=== PATIENT | female | born 1995 | race Caucasian/White ===

== ENCOUNTER 2018-04-04 00:32 | Outpatient (CLI) | payer MEDICAID, SELFPAY ==
--- NOTE | 2018-04-04 11:39 | DI.US_ITS ---
SYMPTOMS/DIAGNOSIS: GROWTH, Z34.90 OB ULTRASOUND: A cephalic del real is demonstrated with measurements consistent with a gestational age of 35 weeks. The amniotic fluid index is normal. There is anterior grade II fundal placenta. The estimated weight is 2483 grams which is in the 27th percentile. Please see the obstetrical ultrasound worksheet for the complete results of the examination. Many abnormalities cannot be diagnosed. A normal exam does not exclude a congenital anomaly. Radiology No. [id number] LMP: Exam Date: 04/04/18 [facility] 35 wks 3 days EDC ([facility]) Confirmed: HISTORY: growth, ADRI, weight ---- PREDICTED GESTATIONAL AGE NUMBER 35+3 weeks with a range of 34+3 weeks to 36+3 weeks. 1 Determined by 1STUS X LMP___HISTORY Info. pertaining to fetus # PLACENTA PRESENTATION Grade II Cephalic X Anterior X Posterior___ Breech____ Right Left Transverse(head right___ Fundal X Low-lying___Previa___ Transverse(head left___ Varying BIOMETRY AMNIOTIC FLUID BPD: 89 mm 36 weeks Normal HC: 316 mm 35+3 weeks AC: 304 mm 34+2 weeks FL: 67 mm 34+3 weeks AMNIOTIC FLUID INDEX >26 WK CRL: mm weeks Cisterna Magna: mm CI: 87 RUQ: 6.9 LUQ: 1.6 Cerebellum: cm EFW: 2483 grams Percentile 27% RLQ: 1.7 LLQ: 2.2 5 lbs, 8 oz Total: 12.4 cms Composite AGE= 35 wks EDC by US 05/09/18 BIOPHYSICAL PROFILE ANATOMY IDENTIFIED SCORE 0/2 Heart: 4-Chamber___Rate: 144 BPM LVOT: RVOT: Amniotic Fluid(>2cms)____ Stomach: Kidneys: Respirations (>30 secs) Bladder: Post. Fossa: Body Flex/Extension 3 vessel cord: Ventricles: cord insertion: Lips:____ Extremity Flex/Extension spinal morphology: Nose: Total Score= Palate: NS=not seen
== END 2018-04-04 00:52 ==
PROVIDERS: PCP Nurse Practitioner Family; Visit Provider Advanced Practice Midwife
DX: Z34.93 Encounter for supervision of normal pregnancy, unspecified, third trimester (principal); Z36.89 Encounter for other specified antenatal screening
CPT/HCPCS: 76816

== ENCOUNTER 2018-04-04 16:25 | Outpatient (REF) | payer MEDICAID, SELFPAY | END 2018-04-04 16:45 | LOC: LBN 16:25 | PROVIDERS: PCP Nurse Practitioner Family; Visit Provider Midwife | DX: Z34.91 Encounter for supervision of normal pregnancy, unspecified, first trimester (principal) | CPT/HCPCS: 87081 ==

== ENCOUNTER 2018-04-26 00:26 | Outpatient (CLI) | payer MEDICAID, SELFPAY ==
--- NOTE | 2018-04-26 08:04 | DI.US_ITS ---
SYMPTOMS/DIAGNOSIS: SIZE LESS THAN DATES, 026.843 OB ULTRASOUND: The placenta is anterior. A previously noted venous malhotra appears much smaller in size. The placenta is grade II. The biometric measurements correspond to 37 weeks 5 days. The estimated weight is 3298 grams, corresponding to the 45th percentile. The amniotic fluid index appears normal at 14.0 cm. Many abnormalities cannot be diagnosed. A normal exam does not exclude a congenital anomaly. Radiology No. [id number] LMP: Exam Date: [facility] wks days on EDC ([facility]) Confirmed: HISTORY: SIZE < DATES ---- PREDICTED GESTATIONAL AGE NUMBER 38+4 weeks with a range of 37+4 weeks to 39+4 weeks. 1 Determined by___1STUS___LMP___HISTORY Info. pertaining to fetus # PLACENTA PRESENTATION Grade II Cephalic X Anterior X Posterior___ Breech____ Right Left Transverse(head right___ Fundal___Low-lying___Previa___ Transverse(head left___ Varying BIOMETRY AMNIOTIC FLUID BPD: 93mm 37+5 weeks Normal HC: 331 mm 37+4 weeks AC: 339 mm 37+5 weeks FL: 74 mm 37+6 weeks AMNIOTIC FLUID INDEX >26 WK CRL: mm weeks Cisterna Magna: mm CI: 84 RUQ: 3.7 LUQ: 7.4 Cerebellum: cm EFW: 3298 grams Percentile 45% RLQ: 1.3 LLQ: 1.6 (7# 4OZ) Total: 14.0 cms Composite AGE= 37+5 wks EDC by US 05/12/18 BIOPHYSICAL PROFILE ANATOMY IDENTIFIED SCORE 0/2 Heart: 4-Chamber___Rate: 136 BPM LVOT: RVOT: Amniotic Fluid(>2cms)____ Stomach: Kidneys: Respirations (>30 secs) Bladder: Post. Fossa: Body Flex/Extension 3 vessel cord: Ventricles: cord insertion: Lips:____ Extremity Flex/Extension spinal morphology: Nose: Total Score= Palate: NS=not seen
== END 2018-04-26 00:46 ==
PROVIDERS: PCP Nurse Practitioner Family; Visit Provider Advanced Practice Midwife
DX: O26.843 Uterine size-date discrepancy, third trimester (principal)
CPT/HCPCS: 76816

== ENCOUNTER 2018-05-10 23:33 | Inpatient (IN) | payer MEDICAID, SELFPAY ==
[2018-05-11 00:40] LABS: HCT 41.8 % (36.0-46.0); HGB 14.1 g/dL (12.0-15.5); Mean Corp. HGB Concentration 33.7 g/dL (32.0-36.0); Mean Corpuscular Hemoglobin 30.5 pg (27.0-33.0); Mean Corpuscular Volume 90.5 fL (80-95); Mean Platelet Volume 11.7 fL (8.0-11.0); Platelet Count 165 x1000/uL (130-400); RBC 4.62 m/cumm (4.00-5.20); RBC Distribution Width 13.5 % (11.7-14.6); White Blood Cell Count 14.61 k/cumm (4.4-10.8)
--- NOTE | 2018-05-11 01:32 | PLAC_PTH ---
PATIENT: Ruby Mercado LOC: OBS U#:[id number] AGE/SX: 23/ ROOM: OBS.300 RE05/10/[address]: Melanie Prather RN : 1995 BED: A DIS: 05/12/2018 SPEC #: [id number] RECD: 05/13/18 12:32 STATUS: SOUKavon REQ #: [id number] SERGIO: 05/11/18 01:[address]: Melanie Prather DEPT: Surgical Specimen RECD BY: Laura Morejon ENTERED: 05/13/18 12:33 SP TYPE: PLAC OTHR DR: Eduarda Desai Tissues: 1 - PLACENTA (3RD TRIMESTER) Procedures: GROSS AND MICRO LEVEL 5 Comments: [id number]
[2018-05-11] MEDS: Normal Saline Flush 10 ML SYR IVP (01:45)
[2018-05-11] MEDS: Hamamelis Leaf/Glycerin 100 EACH BOX PR (03:00)
[2018-05-11 13:20] LABS: HCT 33.3 % (36.0-46.0); HGB 11.1 g/dL (12.0-15.5); Mean Corp. HGB Concentration 33.3 g/dL (32.0-36.0); Mean Corpuscular Hemoglobin 31.2 pg (27.0-33.0); Mean Corpuscular Volume 93.5 fL (80-95); Mean Platelet Volume 12.7 fL (8.0-11.0); Platelet Count 162 x1000/uL (130-400); RBC 3.56 m/cumm (4.00-5.20); RBC Distribution Width 13.4 % (11.7-14.6); White Blood Cell Count 22.01 k/cumm (4.4-10.8)
[2018-05-12 08:02] LABS: HCT 30.1 % (36.0-46.0); Mean Corp. HGB Concentration 33.2 g/dL (32.0-36.0); Mean Corpuscular Hemoglobin 31.2 pg (27.0-33.0); Mean Corpuscular Volume 93.8 fL (80-95); Mean Platelet Volume 11.6 fL (8.0-11.0); Platelet Count 141 x1000/uL (130-400); RBC 3.21 m/cumm (4.00-5.20); RBC Distribution Width 13.2 % (11.7-14.6)
[2018-05-12] MEDS: Ferrous Sulfate 325 MG TAB PO (11:41)
[2018-05-12] MEDS: Ibuprofen 600 MG TAB PO (12:52)
[2018-05-12] MEDS: Hamamelis Leaf/Glycerin 100 EACH BOX PR (12:53)
[2018-05-12] MEDS: Acetaminophen 325 MG TAB 650 MG PO (12:53)
== END 2018-05-12 13:00 | disposition home or self-care (01) | DRG 807 ==
PROVIDERS: Admitting Provider Advanced Practice Midwife; PCP Nurse Practitioner Family; Visit Provider Advanced Practice Midwife
DX: O48.0 Post-term pregnancy (principal); Z3A.40 40 weeks gestation of pregnancy; Z37.0 Single live birth
CPT/HCPCS: 36415; 85027; 85461; 86850; 86900; 86901; 90384; 88307; G0378; J2590; J2790; J3490

== ENCOUNTER 2018-06-17 15:43 | Outpatient (REF) | payer MEDICAID, SELFPAY ==
--- NOTE | 2018-06-17 14:50 | PAPFT_PTH ---
PATIENT: Ruby Mercado LOC: [facility] U#:[id number] AGE/SX: 23/ ROOM: RE06/17/[address]: Melanie Prather RN : 1995 BED: DIS: 06/17/2018 SPEC #: [id number] RECD: 06/17/18 17:54 STATUS: TARIK REQ #: [id number] SERGIO: 06/17/18 14:[address]: Melanie Prather DEPT: [facility] Cytology RECD BY: Laura Morejon ENTERED: 06/17/18 17:55 SP TYPE: PAPFT OTHR DR: Eduarda Desai Tissues: 1 - CX/ENDOCX FOR PAP SMEARS Procedures: PAP THIN PREP/UVM Screening Comments: [id number]
[2018-06-19 13:14] LABS: Chlamydia Result Negative; GC Result Negative; Specimen Description CERVIX
== END 2018-06-17 16:03 ==
LOC: LBN 15:43
PROVIDERS: PCP Nurse Practitioner Family; Visit Provider Advanced Practice Midwife
DX: Z11.3 Encounter for screening for infections with a predominantly sexual mode of transmission (principal); Z12.4 Encounter for screening for malignant neoplasm of cervix; Z01.419 Encounter for gynecological examination (general) (routine) without abnormal findings
CPT/HCPCS: 87491; 87591; 88142

== ENCOUNTER 2019-04-23 01:29 | Outpatient (CLI) | payer MEDICAID, SELFPAY ==
--- NOTE | 2019-04-23 14:22 | DI.US_ITS ---
EXAM: US PELVIS TRANSVAGINAL CLINICAL HISTORY: increased pelvic pain, Paraguard location/placement. TECHNIQUE: Transabdominal and transvaginal exams were performed. COMPARISON: No exams were available for comparison FINDINGS: The uterus is retroflexed. The uterus measures 8.2 by 3.8 x 5.8. An IUD is noted within the endom etrial canal. The endometrium measures 10 millimeters in thickness. A 2.4 centimeter corpus luteum c yst is seen on the left ovary. The right ovary is unremarkable. There is no evidence of torsion. Th ere is a physiologic amount of free fluid. There is no evidence of hydronephrosis. IMPRESSION: The IUD is appropriately positioned within the endometrial cavity.
[2019-04-23 15:27] LABS: HCG Quant, Pregnancy < 1 mIU/mL (1-3)
== END 2019-04-23 01:49 ==
PROVIDERS: Advanced Practice Midwife; PCP Nurse Practitioner Family; Visit Provider Advanced Practice Midwife
DX: R10.2 Pelvic and perineal pain (principal); T83.32XA Displacement of intrauterine contraceptive device, initial encounter; N85.4 Malposition of uterus; N83.12 Corpus luteum cyst of left ovary; Z30.431 Encounter for routine checking of intrauterine contraceptive device
CPT/HCPCS: 87491; 87591; 76830; 76856; 84702; 87086

== ENCOUNTER 2019-04-23 17:00 | Outpatient (REF) | payer MEDICAID, SELFPAY ==
[2019-04-25 15:11] LABS: Chlamydia Result Negative (Negative); GC Result Negative (Negative); Specimen Description CERVIX
== END 2019-04-23 17:20 ==
LOC: LBN 17:00
PROVIDERS: PCP Nurse Practitioner Family; Visit Provider Advanced Practice Midwife
DX: Z11.3 Encounter for screening for infections with a predominantly sexual mode of transmission (principal)
CPT/HCPCS: 87491; 87591; 87086

== ENCOUNTER 2020-01-12 01:41 | Outpatient (CLI) | payer MEDICAID, SELFPAY ==
--- NOTE | 2020-01-12 | DI.MRI_ITS ---
EXAM: MR BRAIN WO CLINICAL HISTORY: MIGRAINE FRANCIS,G43.909,INCREASED SEVERITY/FREQUENCY 4+ TIMES/WEEK,DEBILITATING TECHNIQUE: Multiplanar multisequence MRI of the brain was performed. COMPARISON: No exams were available for comparison FINDINGS: VENTRICLES AND EXTRA AXIAL SPACES: Normal in size and morphology for the patient's age. MIDLINE SHIFT: None. CEREBRAL PARENCHYMA: No focus of restricted diffusion to suggest acute infarct. No space-occupying le salvador identified. HEMORRHAGE: None. BRAINSTEM/CEREBELLUM: Normal. CALVARIUM: Normal. VISUALIZED PARANASAL SINUSES/MASTOIDS:Clear. KALISPEL OF ARENAS: Normal flow void. PITUITARY GLAND: Unremarkable. OTHER FINDINGS: None. IMPRESSION: Unremarkable MRI of the brain. DATA REPOSITORY:
== END 2020-01-12 02:01 ==
PROVIDERS: PCP Nurse Practitioner Family; Visit Provider Nurse Practitioner Family
DX: G43.909 Migraine, unspecified, not intractable, without status migrainosus (principal)
CPT/HCPCS: 70551

== ENCOUNTER 2020-07-15 14:41 | Outpatient (REF) | payer MEDICAID, SELFPAY ==
[2020-07-19 14:49] LABS: Chlamydia Result Negative (Negative); GC Result Negative (Negative)
== END 2020-07-15 15:01 ==
LOC: NCHCN 14:41
PROVIDERS: PCP Nurse Practitioner Family; Visit Provider Nurse Practitioner Family
DX: N76.0 Acute vaginitis (principal); B37.3 Candidiasis of vulva and vagina; Z00.00 Encounter for general adult medical examination without abnormal findings
CPT/HCPCS: 87491; 87591; 87480; 87510; 87660

== ENCOUNTER 2020-10-19 02:36 | Outpatient (CLI) | payer MEDICAID, SELFPAY ==
[2020-10-19 11:59] LABS: Source Nasal/Nares
[2020-10-19 15:51] LABS: COVID-19 PCR Negative (Negative)
== END 2020-10-19 02:37 | disposition home or self-care (01) ==
LOC: LBO 02:37
PROVIDERS: PCP Nurse Practitioner Family; Visit Provider Obstetrics & Gynecology Gynecology
DX: Z20.822 Contact with and (suspected) exposure to COVID-19 (principal); Z01.818 Encounter for other preprocedural examination
CPT/HCPCS: 87635

== ENCOUNTER 2020-10-19 04:08 | Outpatient (CLI) | payer MEDICAID, SELFPAY ==
[2020-10-19 14:32] LABS: HCT 43.4 % (36.0-46.0); HGB 14.2 g/dL (11.2-15.7); MCH 29.2 pg (27.0-33.0); MCHC 32.7 % (32.0-36.0); MCV 89.1 fL (80-95); MPV 11.6 fL (8.0-11.0); Platelet Count 243 10^3/uL (130-400); RBC 4.87 10^6/uL (3.93-5.22); RDW 12.4 % (11.7-14.6); RDW-SD 40.8 fL; WBC 8.73 10^3/uL (4.4-10.8)
[2020-10-19 16:12] LABS: Anion Gap 10.7 mmol/L (3-11); CO2 28.3 mmol/L (21.0-32.0); Chloride 103 mmol/L (98-107); Potassium 4.6 mmol/L (3.5-5.1); Sodium 142 mmol/L (136-145)
[2020-10-19 16:18] LABS: HCG Quant, Pregnancy < 1 mIU/mL (1-3)
== END 2020-10-19 04:09 | disposition home or self-care (01) ==
LOC: LBO 04:08
PROVIDERS: PCP Nurse Practitioner Family; Visit Provider Obstetrics & Gynecology Gynecology
DX: Z30.2 Encounter for sterilization (principal); Z30.432 Encounter for removal of intrauterine contraceptive device; Z01.818 Encounter for other preprocedural examination; Z01.812 Encounter for preprocedural laboratory examination
CPT/HCPCS: 36415; 80051; 85027; 86850; 86900; 86901; 84702

== ENCOUNTER 2020-10-21 11:22 | Day surgery (SDC) | payer MEDICAID, SELFPAY ==
[2020-10-21] VITALS (7 sets, daily range): BP systolic 92–116; BP diastolic 50–75; PULSE 56–74; RESP 12–23; TEMP 36.3–36.8; O2SAT 98–100
[2020-10-21] MEDS: Lactated Ringers 1,000 ML 125 ML IV (11:53)
[2020-10-21] MEDS: Bupivacaine 0.25% Pres-Free 30 ML VIAL (13:14)
--- NOTE | 2020-10-21 13:35 | FALL_PTH ---
PATIENT: Ruby Mercado LOC: [facility] U#:[id number] AGE/SX: 25/F ROOM: RE10/21/[address]: Brielle Ventura : 1995 BED: DIS: 10/21/2020 SPEC #: [id number] RECD: 10/21/20 17:28 STATUS: TARIK REQ #: [id number] SERGIO: 10/21/20 13:[address]: Brielle Ventura DEPT: Surgical Specimen RECD BY: Laura Morejon ENTERED: 10/21/20 17:29 SP TYPE: Fall OTHR DR: Amrit Lawrence Tissues: 1 - FALLOPIAN TUBE (STERILIZATION) 2 - FALLOPIAN TUBE (STERILIZATION) Procedures: GROSS AND MICRO LEVEL 2 Comments: [id number]
--- NOTE | 2020-10-21 14:08 | W.PM.DSUDISC ---
Discharge Plan Disposition Patient Disposition: HOME Condition: Fair Discharge Details Reason For Visit: Laparoscopic tubal sterilization Attending Provider: Brielle Ventura Primary Care Provider: Amrit Lawrence Home Meds and New Rx's Prescriptions: Discontinued ParaGard T 380A 380 square mm intrauterine device 1 device IY ONCE Qty: 1 RF: 0 No Action oxycodone-acetaminophen [Endocet] 5-325 mg tablet 1 tab PO Q6H MDD 4 PRN (Reason: pain) Qty: 7 RF: 0 Discharge Instructions Additional Instructions: Follow-up in [address] Ventura for postop check. IUD was removed during today's procedure. 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 Activity:: Activity as Tolerated Diet:: As Tolerated Discharge Orders Discharge Orders: Discharge Order (Routine); Ordered 10/21/20 Ordered By: Brielle Ventura DS: Diagnosis Discharge Diagnosis (1) H/O bilateral salpingectomy: Status: Acute
[2020-10-21] MEDS: oxyCODONE 5 mg/Acetaminophen 325 mg TAB PO (14:57)
--- NOTE | 2020-10-21 15:07 | ROE_ITS ---
Date of service: 10/21/20 Time of Service: 15:07 Operative Note Operative Note DATE OF PROCEDURE: 10/21/20 PRE-OP DIAGNOSIS: Desires sterilization POST-OP DIAGNOSIS: same PROCEDURE: Laparoscopic bilateral salpingectomy and IUD removal SURGEON: Brielle Ventura BARREL DEDENTING MACHINE OPERATOR: Sydnie Holland ANESTHESIA TYPE: General LMA/ETT Refer to Anesthesia Record ESTIMATED BLOOD LOSS: 0 PATHOLOGY: other (Bilateral fallopian tubes to pathology) COMPLICATIONS: None Patient was transported to: PACU Patient's condition: stable Indications: 25yo who has requested laparoscopic bilateral salpingectomy for the purpose of the permanent sterilization. She is used LARC in the past and is clear and her desire to have a permanent sterilization. Findings: Normal adnexa, normal upper abdomen normal appendix Procedure Description: Patient was taken to the operating room where she was placed in the dorsal supine position and endotracheal anesthesia was administered without difficulty. SCDs were in place. A surgical timeout was performed. The patient in the frog-leg position a ring forcep was used to grasp the ParaGard IUD string and the IUD was removed intact. She was prepped and draped in the usual sterile fashion. The umbilical fold was infiltrated with quarter percent Marcaine without epinephrine and 12 mm vertical skin incision was made in the umbilicus. Through this incision a varies needle connected to carbon dioxide gas was inserted into the abdomen and intra-abdominal placement confirmed by drop in the intra-abdominal pressure. Once a pneumoperitoneum was established we attempted to introduce a 12 mm Visiport trocar into the abdomen under direct visualization. We were unable to penetrate the peritoneum with the Visiport. It was removed and the fascia and peritoneum was grasped with Jignesh clamps incised and a Deshpande 12 mm port was introduced into the abdomen and intra-abdominal placement confirmed by use of the laparoscope. Pneumoperitoneum was once again reestablished and the patient was then placed in Trendelenburg and 2 sites on the abdomen approximately 6 cm diagonal to the right of and left of the umbilical incision were transilluminated, the skin infiltrated incised. Under direct visualization two 5 mm ports were placed in the right and left lower quadrants respectively. The abdomen was inspected with the above-noted findings. The left fimbria was located followed out to its fimbriated end and a LigaSure electrocautery device was used to clamp cauterize and transect the fimbria from the left mesosalpinx to the level of the left uterine cornua. LigaSure device was used to clamp cauterize and transect the left distal portion of the fallopian tube from the left uterine cornua. The left fallopian tube was then delivered through the 12 mm umbilical port and passed off of the operative field. A similar technique was carried out on the right fallopian tube without difficulty. After delivery of the right fallopian tube through the umbilical port both pedicles were inspected and noted to be hemostatic. Under direct visualization the two 5 mm ports were removed and the pneumoperitoneum reduced, and the umbilical port removed. The fascia of the umbilical port site was reapproximated with interrupted suture of 0 Vicryl. The skin of all trocar sites was reapproximated with 4-0 Monocryl and covered with dry sterile dressings. The patient was awakened extubated and transported to recovery area in stable condition. All sponge lap needle counts are correct x2
--- NOTE | 2020-10-25 12:24 | PDOC.ANES ---
Date of service: 10/25/20 Time of Service: 12:24 Anesthesia Note Report Anesthesia Note: Phone contact made with Ruby Jess, discussed her current sore throat, and what she describes as redness of her uvula. She describes soreness to swallowing food and drink. She was told to continue with cold drinks as tollerated and OTC pain medications as needed. Ruby was told to call back the anesthesia group by the end of the week if she has worsening pain or difficulty swallowing.
== END 2020-10-21 16:14 | disposition home or self-care (01) ==
PROVIDERS: PCP Nurse Practitioner Family; Visit Provider Obstetrics & Gynecology Gynecology
PROC: (CPT 58661; principal; 2020-10-21 13:00)
PROC: (CPT 58661; 2020-10-21 13:00)
DX: Z30.2 Encounter for sterilization (principal); Z30.432 Encounter for removal of intrauterine contraceptive device
CPT/HCPCS: 58661; 58301; 88302; J1100; J1885; J2001; J2250; J2405; J2704; J3475

== ENCOUNTER 2022-04-19 16:30 | Outpatient (REF) | payer MEDICAID, SELFPAY ==
--- NOTE | 2022-04-19 16:20 | PAPFT_PTH ---
PATIENT: Ruby Mercado LOC: [facility] U#:[id number] AGE/SX: 26/F ROOM: RE04/19/[address]: Brielle Ventura : 1995 BED: DIS: 04/19/2022 SPEC #: [id number] RECD: 04/19/22 18:32 STATUS: TARIK REQ #: [id number] SERGIO: 04/19/22 16:[address]: Brielle Ventura DEPT: [facility] Cytology RECD BY: Laura Morejon Tissues: 1 - CX/ENDOCX FOR PAP SMEARS Procedures: PAP THIN PREP/[facility]VM Screening Comments: [id number]
== END 2022-04-19 16:31 | disposition home or self-care (01) ==
LOC: LBN 16:30
PROVIDERS: Visit Provider Obstetrics & Gynecology Gynecology
DX: Z12.4 Encounter for screening for malignant neoplasm of cervix (principal)
CPT/HCPCS: 88142

== ENCOUNTER 2022-12-04 01:01 | Outpatient (CLI) | payer MEDICAID, SELFPAY ==
--- NOTE | 2022-12-04 | DI.US_ITS ---
Exam(s) US BREAST LT COMPLETE US BREAST RT COMPLETE EXAM: US BREAST bilateral COMPLETE CLINICAL HISTORY: GENERALIZED BREAST PAIN TECHNIQUE: Ultrasound bilateral breast performed using standard protocol. All 4 quadrants of the br east were obtained in addition, the axilla and retroareolar regions of both breasts were also interro gated sonographically. COMPARISON: There are no priors for comparison. FINDINGS: No solid or cystic masses, hypoechoic foci, areas of abnormal shadowing, or areas of skin thickening. The axilla are unremarkable. The retroareolar regions are unremarkable. IMPRESSION: 1. No sonographically suspicious finding. 2. The findings were discussed with the patient on the date of the examination. 3. Mammography was not performed at this time. If there is continued clinical concern, mammogram may be obtained. BI-RADS Category 1 - Negative DATA REPOSITORY:
== END 2022-12-04 01:21 ==
LOC: DI 01:01
PROVIDERS: PCP Naturopath; Visit Provider Obstetrics & Gynecology Gynecology
DX: N64.4 Mastodynia (principal)
CPT/HCPCS: 76642

== ENCOUNTER 2023-01-25 16:07 | Emergency (ER) | payer MEDICAID, SELFPAY ==
[2023-01-25 16:15] VITALS: BP 117/69; PULSE 95; RESP 16; TEMP 37.5; O2SAT 100
--- NOTE | 2023-01-25 17:15 | DI.CT_ITS ---
Exam(s) CT ABDOMEN PELVIS W EXAM: CT ABDOMEN PELVIS W CLINICAL HISTORY: abd pain. TECHNIQUE: Imaging Protocol: Axial computed tomography images with coronal and sagittal reformatted images were created and reviewed CONTRAST MATERIAL: Intravenous: Omnipaque-350 100cc Oral: None COMPARISON: No exams were available for comparison FINDINGS: VISUALIZED LUNG BASES: No nodules nor pleural effusions evident. ABDOMEN: There is no ascites. LIVER: There is a 1.2 x 1.0 cm hypodense lesion in the right hepatic lobe which is not a simple cyst but is difficult to further evaluate this type study. May represent incidental hemangioma. There is mild periportal edema in the liver noted. No dilated intrahepatic ducts. GALLBLADDER/BILIARY: Gallbladder is contracted. Wall appears slightly thickened. CBD is not dilated . PANCREAS: No evidence of pancreatic mass nor dilatation of the pancreatic duct. SPLEEN: Spleen is not enlarged. No obvious intrasplenic lesions. Splenic and portal veins are paten t. ADRENALS: There are no significant adrenal masses. KIDNEYS:No cysts evident. No solid renal masses. No calculi nor hydronephrosis.. ABDOMINAL AORTA: Abdominal aorta is not enlarged. LYMPH NODES:There is no retroperitoneal nor paraaortic adenopathy. ABDOMINAL WALL: No evidence of significant anterior abdominal wall nor inguinal hernia. GI: There is no evidence of bowel obstruction, free air, nor abscess. PELVIS: GI: No evidence of appendicitis.No evidence of sigmoid diverticulitis. LYMPH NODES: There is no intrapelvic nor inguinal adenopathy. REPRODUCTIVE: Uterus is retroverted. No abnormal adnexal masses. Small amount of free fluid. May b e female physiologic. URINARY BLADDER: Collapsed. OSSEOUS: No fractures and no significant osseous lesions. IMPRESSION: 1. Gallbladder is contracted. Although there are no obvious gallstones the gallbladder wall appears slightly thickened. Recommend follow-up ultrasound. 2. There is mild periportal edema in the liver evident. 3. There is a 12 x 10 millimeter hypodense lesion in the right hepatic lobe which is not a simple cys t. Probably represents an incidental hemangioma in this age group. If clinically indicated can be f urther studied with hemangioma protocol MRI. 4. No evidence of appendicitis nor diverticulitis. No evidence of pancreatitis. First read by [facility]. RADIATION DOSE DELIVERED: 512.56mGy.cm Total DLP DATA REPOSITORY: All CT scans at this facility are submitted to the National Radiology Data Registry (NRDR) Dose Index Registry (DIR) with the [employer] (ACR). RADIATION OPTIMIZATION: All CT scans at this facility use at least one of these dose optimization te chniques: automated exposure control; mA and/or kV adjustment per patient size (includes targeted exa ms where dose is matched to clinical indication); or iterative reconstruction.
--- NOTE | 2023-01-25 17:28 | ED.GENADUL_ITS ---
Discharge Plan Disposition Patient Disposition: Home Condition: Stable Discharge Details Clinical Impression: Abdominal pain Primary Care Provider: Sam Rahman ED Provider: Walter Morales Home Meds and New Rx's Prescriptions: New naproxen 500 mg tablet 500 mg PO BID PRN (Reason: pain) Qty: 10 0RF tramadol 50 mg tablet 50 mg PO BID PRN (Reason: pain) Qty: 2 0RF Continued fluconazole 150 mg tablet 150 mg PO ONCE Qty: 1 4RF Discharge Instructions Instructions: Abdominal Pain (ED) Discharge Data Discharge Date/Time-TO BE ENTERED AT DEPARTURE: 01/25/23 20:19 HPI General Date/Time Provider Initiated Documentation: 01/25/23 17:15 . HPI Narrative: 27 year old female presents to the ED with several weeks of on and off RUQ pain, but has been more severe the past 2 days. She says that it has been worse at night, waking her up. She says that it not affected by position or food. No fever/chills. Denies any diarrhea, no bloody stools, no blood in her urine. She has hx of b/l tubal so does not think she could be . Related Data Home Medications Medication Instructions Recorded Confirmed fluconazole 150 mg tablet 150 mg PO ONCE #1 tab 04/19/22 11/10/22 naproxen 500 mg tablet 500 mg PO BID PRN pain #10 tabs 01/25/23 tramadol 50 mg tablet 50 mg PO BID PRN pain #2 tabs 01/25/23 Previous Rx's Medication Instructions Recorded fluconazole 150 mg tablet 150 mg PO ONCE #1 tab 04/19/22 naproxen 500 mg tablet 500 mg PO BID PRN pain #10 tabs 01/25/23 tramadol 50 mg tablet 50 mg PO BID PRN pain #2 tabs 01/25/23 Allergies Allergy/AdvReac Type Severity Reaction Status Date / Time No Known Allergies Allergy Unverified 11/10/22 13:27 General Stated Complaint: Abd Prob ANUJ: 3 Review of Systems Narrative: CONST: no fever or chills HEENT: no sore throat SKIN: no rashes PULM: no sob, no cough CARD: no cp, no palpitations ABD: +abd pain EXTR: no swelling NEURO: No focal weakness PFSH All Active Problems Abdominal pain (Acute) Breast pain (Acute) Normal gynecologic examination (Acute) External hemorrhoid (Acute) H/O bilateral salpingectomy (Acute) 10/21/2020. Bilateral tubal sterilization Medical History History of postoperative nausea and vomiting [place] teeth removal Surgical History History of wisdom tooth extraction Family History Mother No problems noted. Father Alcohol abuse Prior. Heart disease Heart stents 05/2016 Brother No problems noted. Brother No problems noted. Grandfather No problems noted. Grandmother No problems noted. Social History Smoking/Tobacco Use Status: Former Tobacco Use Quit Date: 02/13/17 Smoking risk assessment performed?: Yes Alcohol Intake: current Alcohol Intake frequency: holidays/special occasions only Details: none in otherwise 1-2 drinks occ. Drug use: Occasionally Substance use type: marijuana Adopted: No Foster care: No Household members: significant other, children and other Details: Wanda Vance Housing: house Number of Children: 2 current occupation: Housekeeping at [employer] Pets and animals: Yes (2 dogs, 3 cats) Sexually active: Yes Current gender identity: female Duration: 15-30 minutes/day Frequency: 3-4 times per week Charity/Episcopal: none Special charity needs: No Seatbelt use: always Helmet use: Yes Drive intox or ride w/intox hazardous materials tanker driver: No Water heater temp set <120 deg: Yes Working smoke detector in home: Yes Fire extinguisher in home: Yes Carbon monox detector in home: Yes Firearms in home: Yes (locked yes) Do you feel safe at home: Yes Do you feel safe in your relationship?: Yes Victim of physical abuse: No Victim of emotional abuse: No Victim of sexual abuse: No History History 2 Para 2 Hx # Term Pregnancies 2 Multiple births 0 Hx # Pregnancies 0 Ectopic pregnancies 0 AB induced 0 Hx Number of Living Children 2 AB spontaneous 0 Past Pregnancies Del. Date GA/Weeks # Preg Succ Route Wgt Sex Labor Lgth Anesth esia Location Prov Complic 03/17/17 40 vaginal 3146.797 g Male 12hr [facility] 05/11/18 40 No vaginal 2976.7 g Female Delivery Date: 03/17/17 Last Updated by: Tia Jackson customer manager hospitalized at [facility] at 5m.o. w/ viral meningitis Exam Narrative Exam Narrative: Const: well appearing, no acute distress HEENT: normocephalic, atraumatic; MMM Lungs: CTA, no wheezing or rales Heart: RRR Abd: soft, NT/ND Ext: well perfused Neuro: non-focal Skin: no rashes Course 27 yo female presents with abd pain, labs unremarkable and CT without any acute issues, ?periportal edema, non-specific, but may need US. Feeling better, will dc home to f/u closely with pcp. Vital Signs Vital signs: Vital Signs Temperature 37.5 C 01/25/23 16:15 Pulse 95 H 01/25/23 16:15 Respiratory Rate 16 01/25/23 16:15 Blood Pressure 117/69 01/25/23 16:15 Pulse Oximetry 100 01/25/23 16:15 Temperature 37.5 C 01/25/23 16:15 Temperature Source Tympanic 01/25/23 16:15 Pulse 95 H 01/25/23 16:15 Respiratory Rate 16 01/25/23 16:15 Blood Pressure 117/69 01/25/23 16:15 Pulse Oximetry 100 01/25/23 16:15 Oxygen Delivery Method Room Air 01/25/23 16:15 Oxygen Flow Rate 0 01/25/23 16:15 Lab/Test Results Lab/Test Results: POC- Test(urine) Negative
[2023-01-25 17:30] LABS: Bilirubin Negative (Negative); Blood Trace-intact (Negative); Clarity Sl Cloudy (Clear); Glucose Negative (Negative); Ketones Negative (Negative); Leukocyte Esterase Negative (Negative); Nitrite Negative (Negative); Urobilinogen 0.2 mg/dL (Up to 0.2)
[2023-01-25 17:31] LABS: Abs Immature Grans 0.03 10^3/uL (0.0-0.06); Absolute Basophil Count 0.07 10^3/uL (0.0-0.2); Absolute Eosinophil Count 0.18 10^3/uL (0.0-0.7); Absolute Lymphocyte Count 2.64 10^3/uL (1.2-3.4); Absolute Monocyte Count 0.97 10^3/uL (0.1-0.8); Absolute Neutrophil Count 4.71 10^3/uL (1.2-6.7); Basophils % 0.8; Eosinophils % 2.1; HGB 14.6 g/dL (11.2-15.7); Immature Grans % 0.3; Lymphocytes % 30.7; MCH 29.6 pg (27.0-33.0); MCV 87 fL (80-95); Monocytes % 11.3; Neutrophils % 54.8; Platelet Count 250 10^3/uL (130-400); RBC 4.93 10^6/uL (3.93-5.22); RDW 12.7 % (11.7-14.6)
[2023-01-25] MEDS: Normal Saline 1,000 ML 1000 ML IV (17:31)
[2023-01-25 17:52] LABS: ALT 19 U/L (14-59); AST 12 U/L (15-37); Albumin 3.8 g/dL (3.4-5.0); Alkaline Phosphatase 62 U/L (46-116); Anion Gap 6.1 mmol/L (3-11); BUN 10 mg/dL (7-18); Bilirubin, Total 0.4 mg/dL (0.2-1.0); CO2 29.9 mmol/L (21.0-32.0); CREATININE 0.8 mg/dL (0.55-1.02); Calcium 8.7 mg/dL (8.5-10.1); Chloride 104 mmol/L (98-107); Estimated GFR 102.86 (mL/min/1.73m2); Glucose 67 mg/dL (74-106); Lipase 41 U/L (16-77); Potassium 3.5 mmol/L (3.5-5.1); Sodium 140 mmol/L (136-145); Total Protein 7.2 g/dL (6.4-8.2)
[2023-01-25 17:53] LABS: Bacteria Few HPF (Negative); C & S Indicated? No/Sq. Contamination; Casts Negative LPF (Negative); Crystals Negative HPF (Negative); Epithelial Cells Many HPF (Negative); Mucus Negative (Negative); RBC 0-2 HPF (0-2)
[2023-01-25] MEDS: Omnipaque 350 MG/ML 100 ML BTL IJ (18:50)
--- NOTE | 2023-01-25 19:41 | DI.VRAD_ITS ---
PROCEDURE INFORMATION: Exam: CT Abdomen And Pelvis With Contrast Exam date and time: 01/25/2023 6:51 PM Age: 27 years old Clinical indication: Abdominal pain; Localized; Right upper quadrant (ruq); Prior surgery; Surgery date: 6+ months; Surgery type: Tubal ligation; Patient HX: Right sided abd pain TECHNIQUE: Imaging protocol: Computed tomography of the abdomen and pelvis with contrast. Radiation optimization: All CT scans at this facility use at least one of these dose optimization techniques: automated exposure control; mA and/or kV adjustment per patient size (includes targeted exams where dose is matched to clinical indication); or iterative reconstruction. Contrast material: OMNI 350; Contrast volume: 100 ml; Contrast route: INTRAVENOUS (IV); COMPARISON: US PELVIS TRANSVAGINAL 04/23/2019 2:33 PM FINDINGS: Liver: Mild periportal edema noted in the liver. There is a 1.2 cm hypodense lesion in the right hepatic lobe, with a central of hypodensity noted. Gallbladder and bile ducts: The gallbladder is unremarkable. No calcified stones. No ductal dilation. Pancreas: No ductal dilation. No pancreatic lesion seen. Spleen: The spleen is unremarkable. No splenomegaly. Adrenal glands: Normal. No mass. Kidneys and ureters: The kidneys are unremarkable. No hydronephrosis. Stomach and bowel: No bowel obstruction. No mucosal thickening. Appendix: No evidence of appendicitis. Intraperitoneal space: No free air. No significant fluid collection. Trace free fluid noted in the pelvis, possibly physiologic. Vasculature: No abdominal aortic aneurysm. Lymph nodes: No enlarged lymph nodes. Urinary bladder: Unremarkable as visualized. Reproductive: The uterus is retroverted in positioning. Bones/joints: No acute fracture. Soft tissues: Unremarkable. IMPRESSION: 1. Mild periportal edema in the liver, which is nonspecific. Correlate with clinical findings. 2. 1.2 cm hypodense lesion in the right hepatic lobe, also nonspecific, however differential diagnosis includes hepatic adenoma, hemangioma, infection, biloma among other etiologies. Nonemergent liver MRI may be considered for further evaluation. Dictated and Authenticated by: Emeli Mccurdy MD. Ordering:EARL Watson MD
[2023-01-25 20:06] VITALS: BP 98/66; PULSE 76; RESP 18; O2SAT 98
== END 2023-01-25 20:19 | disposition home or self-care (01) ==
PROVIDERS: Emergency Medicine; Emergency Provider Emergency Medicine; PCP Naturopath
DX: R10.11 Right upper quadrant pain (principal); Z87.891 Personal history of nicotine dependence
CPT/HCPCS: 36415; 80053; 81025; 83690; 96360; 96361; 99285; 74177; 81003; 81015; 85025; 99283; J3490

== ENCOUNTER 2023-02-16 00:20 | Outpatient (CLI) | payer MEDICAID, SELFPAY ==
--- NOTE | 2023-02-16 07:30 | DI.MRI_ITS ---
Exam(s) MR ABDOMEN WO/W EXAM: MR ABDOMEN WO/W CLINICAL HISTORY: 1.2 X 1 CM HYPODENSE LESION RT HEPATIC LOBE, K76.9, SEEN ON CT TECHNIQUE: Multiplanar multisequence MRI was performed with both pre and post contrast infused seque nces. Contrast injected sequences were performed following IV injection of cc of Dotarem. COMPARISON: CT CT ABDOMEN PELVIS W from 01/25/2023 FINDINGS: VISUALIZED LUNG BASES: No pleural effusions evident. There is no ascites evident. LIVER: There is a T2 bright 1.2 x 1.3 x 1.4 cm slightly lobulated lesion in the right hepatic lobe wh ich corresponds to the finding on the recent CT scan. Following contrast injection it exhibits kimberly cteristics of hemangioma. There are no other significant focal hepatic findings. No steatosis. Sys temic and portal veins in the liver are patent. BILIARY: No gallstone seen. No gallbladder wall edema. The CBD is not dilated. PANCREAS: There is no evidence of pancreatic mass nor dilatation of the pancreatic duct. SPLEEN: Spleen is not enlarged and there are no intrasplenic lesions.Splenic and portal veins are pat ent ADRENALS: There are no significant adrenal masses. KIDNEYS: No solid renal masses. No hydronephrosis.No cysts evident. ABDOMINAL AORTA: Not enlarged and there is no significant para-aortic adenopathy. ANTERIOR ABDOMINAL WALL/GI: There is no evidence of significant anterior abdominal wall hernia in the field of view of this study.Is no evidence of obvious bowel obstruction. OSSEOUS: There are no lytic osseous lesions in the field of view of this study. IMPRESSION: 1. There is a 12 x 13 x 14 mm benign-appearing lesion in the right hepatic lobe corresponds to the fi nding described on the recent CT scan and which exhibits signal characteristics and enhancement patte rn of a benign intraosseous hemangioma. 2. No other significant findings in the upper abdomen evident on this MRI study. DATA REPOSITORY:
[2023-02-16] MEDS: Normal Saline - Diluent 50 ML VIAL 25 ML IJ (08:23)
[2023-02-16] MEDS: Gadoterate meglumine 20 ML VIAL 11 ML IVP (08:24)
== END 2023-02-16 00:40 ==
LOC: DI 00:20
PROVIDERS: PCP Naturopath; Visit Provider Nurse Practitioner Family
DX: R93.2 Abnormal findings on diagnostic imaging of liver and biliary tract (principal)
CPT/HCPCS: 74183

== ENCOUNTER 2024-04-29 10:48 | Emergency (ER) | payer MEDICAID, SELFPAY ==
[2024-04-29 10:53] VITALS: BP 120/83; PULSE 109; RESP 12; TEMP 36.3; O2SAT 98
--- NOTE | 2024-04-29 11:00 | W.ED.GENAD ---
Discharge Plan Disposition Patient Disposition: Home Condition: Stable Discharge Details Clinical Impression: Right lower lobe pneumonia Primary Care Provider: Sam Rahman ED Provider: Brandon Ortiz Home Meds and New Rx's Prescriptions: New amoxicillin-pot clavulanate 875-125 mg tablet 1 tab PO BID 5 Days Qty: 10 0RF azithromycin 250 mg tablet See Rx Instructions .ROUTE .COMPLEX Qty: 6 0RF Rx Instructions: For 250 mg dose pack: take 500 mg today (day 1), then 250 mg for 4 days (days 2-5) Continued digestive enzymes Capsule 1 cap PO TID Rx Instructions: administer with food; swallow whole; do not crush/chew/dissolve/break/cut magnesium glycinate 100 mg magnesium capsule 1 mg PO DAILY ibuprofen [Advil] 200 mg tablet 600 mg PO Q8H Discharge Instructions Instructions: Azithromycin (Systemic), Community-acquired pneumonia in adults, Amoxicillin and Clavulanate Additional Instructions: You were seen in the emergency department for your respiratory illness, you have a right lower lobe pneumonia, negative for COVID and flu. I am prescribing you 2 different antibiotics to treat community-acquired pneumonia, please take them as directed. Please use therapeutic dosing of Tylenol (acetamenophen) & Advil (ibuprofen) in an alternating fashion as follows: Take 1000mg of Tylenol every 6 hours without missing doses- that is 4 times per day. [place] in between the Tylenol dosings, take 400-600mg of Advil also on a 6 hour schedule, that is also 4 times per day. The daily maximum dosing of Tylenol is 4000mg, and the daily maximum dosing of Advil is 2400mg. This is safe to do for weeks. Please note that some common cold medications & prescription pain medications may contain acetamenophen and you need to read OTC drug labels and factor that in to maximum daily dosings. Take [id number] cold medicine like Mucinex Please monitor your condition at home, return to the ED for worsening despite treatment especially with respiratory distress. Referrals: Sam Rahman [Primary Care Provider] - Discharge Data Discharge Date/Time-TO BE ENTERED AT DEPARTURE: 04/29/24 12:44 HPI General Date/Time Provider Initiated Documentation: 04/29/24 11:00. HPI Narrative: 29 year-old female presents to ED today by POV/ambulating with a chief complaint of cough, fever, body aches, mild SOB, sore throat, producing yellow mucous with onset the past day or two- her son was recently diagnosed with pneumonia last week. Quality described as generalized malaise, chills, and cough, had a fever of 102F at home, no radiation to chest pain, profound shortness of breath, nausea/vomiting, inability to tolerate PO intake, dizziness. Severity is described as moderate. Palliating factors include took Motrin today with some relief. Provoking factors include nothing specific. Patient not anticoagulated. Related Data Home Medications ?Medication ?Instructions ?Recorded ?Confirmed magnesium glycinate 1 mg PO DAILY 03/20/23 04/29/24 digestive enzymes 1 cap PO TID 03/21/23 04/29/24 amoxicillin 875 mg-potassium 1 tab PO BID pneumonia 5 days #10 04/29/24 clavulanate 125 mg tablet tabs azithromycin 250 mg tablet See Rx Instructions PO .COMPLEX #6 04/29/24 tabs ibuprofen 200 mg tablet (Advil) 600 mg PO Q8H 04/29/24 04/29/24 Previous Rx's ?Medication ?Instructions ?Recorded amoxicillin 875 mg-potassium 1 tab PO BID pneumonia 5 days #10 04/29/24 clavulanate 125 mg tablet tabs azithromycin 250 mg tablet See Rx Instructions PO .COMPLEX #6 04/29/24 tabs Allergies Allergy/AdvReac Type Severity Reaction Status Date / Time No Known Allergies Allergy Verified 04/29/24 10:57 General Stated Complaint: GenMedical ANUJ: 3 Review of Systems All systems reviewed & are unremarkable except as noted in HPI and below Exam Narrative Exam Narrative: GENERAL APPEARANCE: Well-nourished, non-toxic, awake and alert, atraumatic, no acute distress. SKIN: Warm, pink, dry, intact, without rashes/lesions/ulcerations. HEAD: Normocephalic, atraumatic, normal hair distribution for gender/age. EYES: Normal conjunctiva, no exudates on lids/lashes. ENT: Nares patent, no circumoral cyanosis, no facial swelling NECK: Supple, trachea midline, painless cervical ROM. LUNGS/CHEST: Lungs - diminished R lower lobe, some rhonchi- L lung CTA, non-labored respirations, normal A/P diameter, symmetrical expansion, no chest wall deformity HEART (CV/PV): Regular rate and rhythm without murmur, no peripheral edema, no JVD. ABDOMEN: Soft, non-distended, no guarding. MSK: Normal ROM, no swelling/deformity to bilateral UEs or LEs, moving all extremities without weakness, no cyanosis, spine midline without tenderness, normal curvature. NEURO: Mental Status AAOx4 - alert to person, place, time, events No facial droop, no forehead involvement. Motor: No focal weakness - strength 5/5 in bilateral UEs and LEs, proximal and distal, symmetric. Sensory: sensation intact to light touch globally. Gait normal: patient ambulated without ataxia into ED room. PSYCH: euthymic, cooperative, pleasant, appropriate speech Course Vital Signs Vital signs: Vital Signs Temperature 36.3 C L 04/29/24 10:53 Pulse 109 H 04/29/24 10:53 Respiratory Rate 12 04/29/24 10:53 Blood Pressure 120/83 04/29/24 10:53 Pulse Oximetry 98 04/29/24 10:53 Temperature 36.3 C L 04/29/24 10:53 Temperature Source Oral 04/29/24 10:53 Pulse 109 H 04/29/24 10:53 Respiratory Rate 12 04/29/24 10:53 Blood Pressure 120/83 04/29/24 10:53 Blood Pressure Position Sitting 04/29/24 10:53 Pulse Oximetry 98 04/29/24 10:53 Oxygen Delivery Method Room Air 04/29/24 10:53 Oxygen Flow Rate 0 04/29/24 10:53 Pain Level 7 04/29/24 10:53 Medical Decision Making This dictation utilizes [id number] dictation software and may contain unedited grammatical errors. 29 year-old female presents to ED today by POV/ambulating with a chief complaint of cough, fever, body aches, mild SOB, sore throat, producing yellow mucous with onset the past day or two- her son was recently diagnosed with pneumonia last week. Quality described as generalized malaise, chills, and cough, had a fever of 102F at home, no radiation to chest pain, profound shortness of breath, nausea/vomiting, inability to tolerate PO intake, dizziness. Severity is described as moderate. Palliating factors include took Motrin today with some relief. Provoking factors include nothing specific. Patients' medical history: noncontributory. Family and social history: noncontributory. Pertinent exam findings / vital signs include lungs diminished in R lower lobe with some rhonchi- no wheezing, no hypoxia, benign cardiac exam, benign abdomen, nontoxic vitals. Differential / pathologies of concern include pneumonia, URI, viral URI, strep, not hypoxic respiratory failure. Diagnostic studies of: -CBC, CMP, Lactate, CXR, Covid/Flu/RSV PCR. -CBC shows no leukocytosis, no anemia -lactate neg -CMP shows mild hypokalemia- would normalize with PO intake -CXR shows R LL pneumonia -Covid/Flu/RSV negative Interventions of: -provided Tylenol 1g PO. Outpt Rx for Azith/Augmentin ED Course/Assessment/Plan: 29-year-old otherwise healthy female presents with productive cough and bodyaches and fevers, her son is recently getting over and pneumonia treated with antibiotics here last Sunday, her chest x-ray shows a simple right lower lobe pneumonia and her labs are reassuring for no signs of severe infection or sepsis, no actionable abnormality on CMP, provided dual antibiotic coverage for community-acquired pneumonia and counseled the patient on strict return criteria for failure to improve by day 3 on antibiotics or any worsening respiratory distress. Findings not consistent with sepsis, hypoxic respiratory failure. Disposition of right lower lobe pneumonia. Patient verbalized understanding of the plan and return to ED criteria and engaged in shared decision making. Medical Records Medical records reviewed: Yes I reviewed the patient's medical records. Imaging Data Radiologic Study: Attestation: I personally reviewed and interpreted this imaging study as follows: Imaging: X-Ray Radiologist's impression: EXAM: XR CHEST 2V PA LATERAL CLINICAL HISTORY: cough, R base rhonchi TECHNIQUE: 2D digital imaging was performed of the chest. Two images were obtained. PA and lateral views were obtained. COMPARISON: No exams were available for comparison FINDINGS: MEDIASTINUM: Normal. HEART: Normal. PULMONARY VASCULATURE: Normal. LUNGS: There is an infiltrate in the superior segment of the right lower lobe. The left lung is clear. PLEURAL SPACE: No pleural effusion or pneumothorax. BONE:Within normal limits for the patient's age. OTHER FINDINGS:Normal. IMPRESSION: Right lower lobe pneumonia. Lab Data Lab results reviewed: Yes I reviewed the patient's lab results. Lab results narrative: POC Strep negative Labs: Laboratory Tests Range/Units 04/29/24 04/29/24 11:15 11:38 WBC (4.4-10.8) 10^3/uL 6.19 RBC (3.93-5.22) 10^6/uL 5.27 H Hgb (11.2-15.7) g/dL 15.3 Hct (36.0-46.0) % 46.4 H MCV (80-95) fL 88 MCH (27.0-33.0) pg 29.0 MCHC (32.0-36.0) % 33.0 RDW (11.7-14.6) % 12.6 Plt Count (130-400) 10^3/uL 175 MPV (8.0-11.0) fL 11.6 H Immature Gran % % 0.3 Neutrophils % % 67.6 Lymphocytes % % 17.4 Monocytes % % 12.8 Eosinophils % % 1.1 Basophils % % 0.8 Nucleated RBC % (0.0-0.3) % 0.0 Absolute Neutrophils (1.2-6.7) 10^3/uL 4.18 Absolute Lymphocytes (1.2-3.4) 10^3/uL 1.08 L Absolute Monocytes (0.1-0.8) 10^3/uL 0.79 Absolute Eosinophils (0.0-0.7) 10^3/uL 0.07 Absolute Basophils (0.0-0.2) 10^3/uL 0.05 VBG Lactate (0.6-1.4) mmol/L 0.6 Sodium (136-145) mmol/L 141 Potassium (3.5-5.1) mmol/L 3.4 L Chloride (98-107) mmol/L 104 Carbon Dioxide (21.0-32.0) mmol/L 26.3 Anion Gap (3-11) mmol/L 10.7 BUN (7-18) mg/dL 10 Creatinine (0.55-1.02) mg/dL 0.9 Est GFR (CKD-EPI 2020) (mL/min/1.73m2) 88.20 Glucose (74-106) mg/dL 88 Calcium (8.5-10.1) mg/dL 9.9 Total Bilirubin (0.2-1.0) mg/dL 0.37 AST (15-37) U/L 10 L ALT (14-59) U/L 15 Alkaline Phosphatase (46-116) U/L 75 Total Protein (6.4-8.2) g/dL 8.0 Albumin (3.4-5.0) g/dL 3.9 COVID-19 Source Nasopharynx SARS-CoV-2 (PCR) (Negative) Negative Influenza Type A (PCR) (Negative) Negative Influenza Type B (PCR) (Negative) Negative RSV (PCR) (Negative) Negative Quality:SDOH Health Related Social Needs: No Data to Display PFSH All Active Problems Right lower lobe pneumonia (Acute) Liver lesion (Acute) Hepatic hemangioma (Acute) Abdominal pain, lower (Acute) Change in stool habits (Acute) Nausea (Acute) Acute diarrhea (Acute) Epigastric discomfort (Acute) Breast pain (Acute) Normal gynecologic examination (Acute) External hemorrhoid (Acute) H/O bilateral salpingectomy (Acute) 10/21/2020. Bilateral tubal sterilization Medical History (Updated 04/29/24 @ 12:22 by CHRISTIAN Lewis) Migraine headache Presence of IUD Anxiety Hemorrhoids Sinusitis, acute, maxillary History of postoperative nausea and vomiting [place] teeth removal Surgical History History of wisdom tooth extraction Family History Mother No problems noted. Father Alcohol abuse Prior. Heart disease Heart stents 05/2016 Brother No problems noted. Brother No problems noted. Grandfather No problems noted. Grandmother No problems noted. Social History Smoking/Tobacco Use Status: Former Tobacco Use Quit Date: 02/14/12 Smoking risk assessment performed?: Yes Alcohol Intake: current Alcohol Intake frequency: holidays/special occasions only Details: none in otherwise 1-2 drinks occ. Drug use: Occasionally Substance use type: marijuana Adopted: No Foster care: No Household members: significant other, children and other Details: Cameron Shay, Wanda Housing: house Number of Children: 2 current occupation: Housekeeping at [employer] Pets and animals: Yes (2 dogs, 3 cats) Sexually active: Yes Current gender identity: female Duration: 15-30 minutes/day Frequency: 3-4 times per week Charity/Pentecostalism: none Special charity needs: No Seatbelt use: always Helmet use: Yes Drive intox or ride w/intox diesel truck driver: No Water heater temp set <120 deg: Yes Working smoke detector in home: Yes Fire extinguisher in home: Yes Carbon monox detector in home: Yes Firearms in home: Yes (locked yes) Do you feel safe at home: Yes Do you feel safe in your relationship?: Yes Victim of physical abuse: No Victim of emotional abuse: No Victim of sexual abuse: No History History 2 Para 2 Hx # Term Pregnancies 2 Multiple births 0 Hx # Pregnancies 0 Ectopic pregnancies 0 AB induced 0 Hx Number of Living Children 2 AB spontaneous 0 Past Pregnancies Del. Date GA/Weeks # Preg Succ Route Wgt Sex Labor Lgth Anesthesia Location Prov Complic 03/17/17 40 vaginal 3146.797 g Male 12hr [facility] 05/11/18 40 No vaginal 2976.7 g Female Delivery Date: 03/17/17 Last Updated by: Tia Jackson RN Baby hospitalized at [facility] [place] at 5m.o. w/ viral meningitis
--- NOTE | 2024-04-29 11:15 | DI.RAD_ITS ---
Exam(s) XR CHEST 2V PA LATERAL EXAM: XR CHEST 2V PA LATERAL CLINICAL HISTORY: cough, R base rhonchi TECHNIQUE: 2D digital imaging was performed of the chest. Two images were obtained. PA and lateral views were obtained. COMPARISON: No exams were available for comparison FINDINGS: MEDIASTINUM: Normal. HEART: Normal. PULMONARY VASCULATURE: Normal. LUNGS: There is an infiltrate in the superior segment of the right lower lobe. The left lung is bakari r. PLEURAL SPACE: No pleural effusion or pneumothorax. BONE:Within normal limits for the patient's age. OTHER FINDINGS:Normal. IMPRESSION: Right lower lobe pneumonia. DATA REPOSITORY: RADIATION DOSE DELIVERED:
[2024-04-29 11:25] VITALS: RESP 20
[2024-04-29] MEDS: Acetaminophen 500 MG TAB 1000 MG PO (11:28)
[2024-04-29 11:46] LABS: Abs Immature Grans 0.02 10^3/uL (0.0-0.06); Absolute Basophil Count 0.05 10^3/uL (0.0-0.2); Absolute Eosinophil Count 0.07 10^3/uL (0.0-0.7); Absolute Lymphocyte Count 1.08 10^3/uL (1.2-3.4); Absolute Monocyte Count 0.79 10^3/uL (0.1-0.8); Absolute Neutrophil Count 4.18 10^3/uL (1.2-6.7); Basophils % 0.8 %; Eosinophils % 1.1 %; HCT 46.4 % (36.0-46.0); HGB 15.3 g/dL (11.2-15.7); Immature Grans % 0.3 %; Lymphocytes % 17.4 %; MCV 88 fL (80-95); MPV 11.6 fL (8.0-11.0); Monocytes % 12.8 %; Neutrophils % 67.6 %; Platelet Count 175 10^3/uL (130-400); RBC 5.27 10^6/uL (3.93-5.22); RDW 12.6 % (11.7-14.6); WBC 6.19 10^3/uL (4.4-10.8)
[2024-04-29 11:47] LABS: Lactate 0.6 mmol/L (0.6-1.4)
[2024-04-29 12:13] LABS: COVID-19 PCR Negative (Negative); Influenza A PCR Negative (Negative); Influenza B PCR Negative (Negative); RSV PCR Negative (Negative)
[2024-04-29 12:17] LABS: Source Nasopharynx
[2024-04-29 12:35] LABS: ALT 15 U/L (14-59); AST 10 U/L (15-37); Albumin 3.9 g/dL (3.4-5.0); Alkaline Phosphatase 75 U/L (46-116); Anion Gap 10.7 mmol/L (3-11); BUN 10 mg/dL (7-18); Bilirubin, Total 0.37 mg/dL (0.2-1.0); CO2 26.3 mmol/L (21.0-32.0); CREATININE 0.9 mg/dL (0.55-1.02); Calcium 9.9 mg/dL (8.5-10.1); Chloride 104 mmol/L (98-107); Glucose 88 mg/dL (74-106); Potassium 3.4 mmol/L (3.5-5.1); Sodium 141 mmol/L (136-145)
[2024-04-29 12:43] VITALS: BP 100/87; PULSE 87; RESP 18; TEMP 37.4; O2SAT 96
== END 2024-04-29 12:44 | disposition home or self-care (01) ==
PROVIDERS: Emergency Provider Physician Assistant; PCP Naturopath
DX: J18.9 Pneumonia, unspecified organism (principal); Z87.891 Personal history of nicotine dependence
CPT/HCPCS: 80053; 87637; 87880; 99284; 71046; 83605; 85025; 99283

== ENCOUNTER 2024-04-30 16:08 | Emergency (ER) | payer MEDICAID, SELFPAY ==
[2024-04-30 16:09] VITALS: BP 126/84; PULSE 105; RESP 16; TEMP 36.4; O2SAT 98
[2024-04-30 16:16] VITALS: BP 126/84; PULSE 105; RESP 16; TEMP 36.4; O2SAT 98
--- NOTE | 2024-04-30 16:32 | ED.GENADUL_ITS ---
Discharge Plan Disposition Patient Disposition: Home Discharge Details Clinical Impression: Rectal bleeding, External hemorrhoid Primary Care Provider: Sam Rahman ED Provider: Wendy Monreal Home Meds and New Rx's Prescriptions: No Action digestive enzymes Capsule 1 cap PO TID Rx Instructions: administer with food; swallow whole; do not crush/chew/dissolve/break/cut magnesium glycinate 100 mg magnesium capsule 1 mg PO DAILY ibuprofen [Advil] 200 mg tablet 600 mg PO Q8H amoxicillin-pot clavulanate 875-125 mg tablet 1 tab PO BID 5 Days Qty: 10 0RF azithromycin 250 mg tablet See Rx Instructions .ROUTE .COMPLEX Qty: 6 0RF Rx Instructions: For 250 mg dose pack: take 500 mg today (day 1), then 250 mg for 4 days (days 2-5) Discharge Instructions Instructions: Hemorrhoids ED Additional Instructions: * blood work today is stable * the antibiotics are likely going to disrupt your GI tract, so make sure to take with food and increase probiotics foods (yogurt, kimchi, probiotic tabs) * increase water and fiber intake. you can also use miralax daily and these can all help with soft stools that don't require straining. straining will irritate your hemorrhoids * return with fever, severe abdominal pain, persistent bleeding * follow up with PCP or with GI for re-evaluation of concerns HPI General Date/Time Provider Initiated Documentation: 04/30/24 16:14 . Limitations to Documentation: no limitations . Information obtained by: patient and old records reviewed . HPI Narrative: 29-year-old female with recent diagnosis of pneumonia and chronic abdominal problems presents for evaluation of rectal bleeding. She reports that she has been ill and yesterday was diagnosed with pneumonia and started on 2 antibiotics, Augmentin and azithromycin. She states that she has been having some ongoing nausea. She says that she had a bowel movement that was not particularly painful, but that she did have some pressure. It was not diarrhea, she described it as snake like. She states that she noted blood on the toilet paper and blood in the toilet. She states that some of the blood in the toilet looked like a clot that you might see from your menstrual cycle. She denies persistent fever. Denies any significant abdominal pain or cramping. She states that she has had a colonoscopy and knows that she has external and internal hemorrhoids Related Data Home Medications ?Medication ?Instructions ?Recorded ?Confirmed magnesium glycinate 1 mg PO DAILY 03/20/23 04/30/24 digestive enzymes 1 cap PO TID 03/21/23 04/30/24 amoxicillin 875 mg-potassium 1 tab PO BID pneumonia 5 days #10 04/29/24 04/30/24 clavulanate 125 mg tablet tabs azithromycin 250 mg tablet See Rx Instructions PO .COMPLEX #6 04/29/24 04/30/24 tabs ibuprofen 200 mg tablet (Advil) 600 mg PO Q8H 04/29/24 04/30/24 Previous Rx's ?Medication ?Instructions ?Recorded amoxicillin 875 mg-potassium 1 tab PO BID pneumonia 5 days #10 04/29/24 clavulanate 125 mg tablet tabs azithromycin 250 mg tablet See Rx Instructions PO .COMPLEX #6 04/29/24 tabs Allergies Allergy/AdvReac Type Severity Reaction Status Date / Time No Known Allergies Allergy Verified 04/30/24 16:13 General Stated Complaint: Abd Prob ANUJ: 4 Exam Narrative Exam Narrative: Review of Systems: All systems reviewed & are unremarkable except as noted in HPI and below Well-developed, no acute distress NCAT PERRL, normal conjunctiva slight tachycardia Unlabored respiratory effort Nondistended abdomen , soft non tender exam performed with RN trials manager : external hemorrhoids noted with no active bleeding, no significant tenderness with manual examination, no significant amount of stool in the rectal vault and there was 1 darinel of bright red, but no significant bleeding Course Vital Signs Vital signs: Vital Signs Temperature 36.4 C L 04/30/24 16:09 Pulse 105 H 04/30/24 16:09 Respiratory Rate 16 04/30/24 16:09 Blood Pressure 126/84 04/30/24 16:09 Pulse Oximetry 98 04/30/24 16:09 Temperature 36.4 C L 04/30/24 16:16 Pulse 105 H 04/30/24 16:16 Respiratory Rate 16 04/30/24 16:16 Respiratory Effort Normal 04/30/24 16:14 Blood Pressure 126/84 04/30/24 16:16 Pulse Oximetry 98 04/30/24 16:16 Oxygen Delivery Method Room Air 04/30/24 16:16 Pain Level 3 04/30/24 16:16 Medical Decision Making Emergent evaluation of rectal bleeding. At this time patient is not having ongoing bleeding and is hemodynamically stable. She was recently started on antibiotics for pneumonia infection. She does have hemorrhoids on examination and I suspect that this is the source of bleeding. I doubt fissure or tear. Would consider colitis but she has been on antibiotics for less than 24 hours, so this seems to be unlikely. Blood she is not having significant diarrhea or output. Will check blood work to make sure that she has not lost a significant amount of blood and give medications. I doubt an upper GI bleeding source. Will give IV medications for nausea. Lab work reviewed. There is no decrease in her hemoglobin of concern. She does have some mild hypokalemia and an oral dose of potassium was given. She does not have significant elevation in her BUN so again I have a low suspicion for an ongoing GI bleed. She has not had any additional bleeding in the emergency department. I suspect that this is secondary to her hemorrhoids and general GI tract disruption. Patient discharged home in good condition and I recommend that she follow-up with her PCP. Return precautions advised. Quality:SDOH Health Related Social Needs: No Data to Display [facility] All Active Problems Rectal bleeding (Acute) Right lower lobe pneumonia (Acute) Liver lesion (Acute) Hepatic hemangioma (Acute) Abdominal pain, lower (Acute) Change in stool habits (Acute) Nausea (Acute) Acute diarrhea (Acute) Epigastric discomfort (Acute) Breast pain (Acute) Normal gynecologic examination (Acute) External hemorrhoid (Acute) H/O bilateral salpingectomy (Acute) 10/21/2020. Bilateral tubal sterilization Medical History Migraine headache Presence of IUD Anxiety Hemorrhoids Sinusitis, acute, maxillary History of postoperative nausea and vomiting [place] teeth removal Surgical History History of wisdom tooth extraction Family History Mother No problems noted. Father Alcohol abuse Prior. Heart disease Heart stents 05/2016 Brother No problems noted. Brother No problems noted. Grandfather No problems noted. Grandmother No problems noted. Social History Smoking/Tobacco Use Status: Former Tobacco Use Quit Date: 02/14/12 Smoking risk assessment performed?: Yes Alcohol Intake: current Alcohol Intake frequency: holidays/special occasions only Details: none in otherwise 1-2 drinks occ. Drug use: Occasionally Substance use type: marijuana Adopted: No Foster care: No Household members: significant other, children and other Details: Cynthia. Katie Alvarez, Wanda Housing: house Number of Children: 2 current occupation: Housekeeping at [employer] Pets and animals: Yes (2 dogs, 3 cats) Sexually active: Yes Current gender identity: female Duration: 15-30 minutes/day Frequency: 3-4 times per week Charity/Hoahaoism: none Special charity needs: No Seatbelt use: always Helmet use: Yes Drive intox or ride w/intox emt driver: No Water heater temp set <120 deg: Yes Working smoke detector in home: Yes Fire extinguisher in home: Yes Carbon monox detector in home: Yes Firearms in home: Yes (locked yes) Do you feel safe at home: Yes Do you feel safe in your relationship?: Yes Victim of physical abuse: No Victim of emotional abuse: No Victim of sexual abuse: No History History 2 Para 2 Hx # Term Pregnancies 2 Multiple births 0 Hx # Pregnancies 0 Ectopic pregnancies 0 AB induced 0 Hx Number of Living Children 2 AB spontaneous 0 Past Pregnancies Del. Date GA/Weeks # Preg Succ Route Wgt Sex Labor Lgth Anesth esia Location [facility] 03/17/17 40 vaginal 3146.797 g Male 12hr [facility] 05/11/18 40 No vaginal 2976.7 g Female Delivery Date: 03/17/17 Last Updated by: Tia Jackson RN Baby hospitalized at [facility] [place] at 5m.o. w/ viral meningitis
[2024-04-30 16:42] LABS: Abs Immature Grans 0.02 10^3/uL (0.0-0.06); Absolute Basophil Count 0.03 10^3/uL (0.0-0.2); Absolute Eosinophil Count 0.19 10^3/uL (0.0-0.7); Absolute Lymphocyte Count 1.13 10^3/uL (1.2-3.4); Absolute Monocyte Count 1.35 10^3/uL (0.1-0.8); Absolute Neutrophil Count 3.11 10^3/uL (1.2-6.7); Basophils % 0.5 %; Eosinophils % 3.3 %; HCT 43.8 % (36.0-46.0); HGB 14.6 g/dL (11.2-15.7); Immature Grans % 0.3 %; Lymphocytes % 19.4 %; MCH 29.4 pg (27.0-33.0); MCHC 33.3 % (32.0-36.0); MCV 88 fL (80-95); MPV 11.8 fL (8.0-11.0); Monocytes % 23.2 %; Neutrophils % 53.3 %; Platelet Count 188 10^3/uL (130-400); RBC 4.97 10^6/uL (3.93-5.22); RDW 12.6 % (11.7-14.6); RDW-SD 40.8 fL; WBC 5.83 10^3/uL (4.4-10.8)
[2024-04-30] MEDS: Ondansetron 4 MG/2 ML VIAL IVP (16:48)
[2024-04-30] MEDS: Metoclopramide 10 MG/2 ML VIAL IVP (16:50)
[2024-04-30 16:52] LABS: Anion Gap 8.8 mmol/L (3-11); BUN 15 mg/dL (7-18); CO2 27.2 mmol/L (21.0-32.0); CREATININE 0.7 mg/dL (0.55-1.02); Calcium 8.9 mg/dL (8.5-10.1); Chloride 104 mmol/L (98-107); Estimated GFR 119.24 (mL/min/1.73m2); Glucose 94 mg/dL (74-106); Potassium 3.4 mmol/L (3.5-5.1); Sodium 140 mmol/L (136-145)
[2024-04-30] MEDS: Normal Saline Flush 10 ML SYR IVP (16:52)
[2024-04-30] MEDS: Pantoprazole 40 MG VIAL IVP (16:53)
[2024-04-30] MEDS: Potassium Chloride Liquid 20 MEQ PKT PO (17:02)
[2024-04-30 17:17] VITALS: BP 99/66; PULSE 95; RESP 16; O2SAT 99
== END 2024-04-30 17:24 | disposition home or self-care (01) ==
PROVIDERS: Emergency Provider Emergency Medicine; PCP Naturopath
DX: J18.9 Pneumonia, unspecified organism (principal); K62.5 Hemorrhage of anus and rectum; R11.0 Nausea; K64.4 Residual hemorrhoidal skin tags; E87.6 Hypokalemia
CPT/HCPCS: 36415; 80048; 81025; 96374; 96375; 99284; 85025; J2405; J2470; J2765

== ENCOUNTER 2024-10-07 18:39 | Emergency (ER) | payer MEDICAID, SELFPAY ==
[2024-10-07 18:42] VITALS: BP 132/81; PULSE 75; RESP 18; TEMP 36.9; O2SAT 100
--- NOTE | 2024-10-07 18:45 | DI.RAD_ITS ---
Exam(s) XR ANKLE RT COMPLETE XR FOOT RT COMPLETE EXAM: XR ANKLE RT COMPLETE CLINICAL HISTORY: injury 3 weeks ago. TECHNIQUE: 2D digital imaging was performed. Three views of the ankle and foot. COMPARISON: CR,XR XR FOOT RT COMPLETE from 10/07/2024 FINDINGS: BONES: No acute fracture is present. No bony destructive lesion is seen. JOINTS: The ankle mortise is normally aligned. SOFT TISSUE: Normal. IMPRESSION: Unremarkable radiographs of the right ankle and foot. DATA REPOSITORY: RADIATION DOSE DELIVERED:
--- NOTE | 2024-10-07 19:03 | ED.GENADUL_ITS ---
Discharge Plan Disposition Patient Disposition: Home Condition: Stable Discharge Details Clinical Impression: Moderate right ankle sprain Primary Care Provider: Sam Rahman ED Provider: Pippa Torres Home Meds and New Rx's Prescriptions: No Action digestive enzymes Capsule 1 cap PO TID Rx Instructions: administer with food; swallow whole; do not crush/chew/dissolve/break/cut magnesium glycinate 100 mg magnesium capsule 1 mg PO DAILY ibuprofen [Advil] 200 mg tablet 600 mg PO Q8H azithromycin 250 mg tablet See Rx Instructions .ROUTE .COMPLEX Qty: 6 0RF Rx Instructions: For 250 mg dose pack: take 500 mg today (day 1), then 250 mg for 4 days (days 2-5) Discharge Instructions Instructions: Ankle Sprain ED Additional Instructions: Please wear the brace as directed for comfort. Rest ice compression elevation when sitting or laying down. Please take Tylenol or Ibuprofen with food every 4-6 hours as needed for pain and swelling. There is no obvious dislocation or fracture noted on the x-rays at this time however I will call you if there is a different radiology read. Follow up with primary care provider in 3-5 days. Return to ED sooner if any worsening or concerns. Thank you for allowing us to care for you today. If you continue to have problems with anemia follow-up orthopedics in the next 2 to 3 weeks. Referrals: Sachin Sharpe PA [[facility]] - Return if symptoms worsen HPI General Mode of arrival: ambulatory . Date/Time Provider Initiated Documentation: 10/07/24 18:42 . Limitations to Documentation: no limitations . Information obtained by: patient, RN notes reviewed and old records reviewed . HPI Narrative: 29-year-old female who presents to the ER with chief complaint of right ankle inversion injury which occurred approximately 3 weeks ago after jumping off approximately 3 foot high step. She reports that she inverted her ankle and has had soreness and pain since then. She has been ambulatory on the leg. She did have some bruising. She also reports radiation of pain into her calf. No other injuries reported. Related Data Home Medications ?Medication ?Instructions ?Recorded ?Confirmed magnesium glycinate 1 mg PO DAILY 03/20/23 10/07/24 digestive enzymes 1 cap PO TID 03/21/23 10/07/24 azithromycin 250 mg tablet See Rx Instructions PO .COMPLEX #6 04/29/24 10/07/24 tabs ibuprofen 200 mg tablet (Advil) 600 mg PO Q8H 04/29/24 10/07/24 Previous Rx's ?Medication ?Instructions ?Recorded azithromycin 250 mg tablet See Rx Instructions PO .COMPLEX #6 04/29/24 tabs Allergies Allergy/AdvReac Type Severity Reaction Status Date / Time No Known Allergies Allergy Verified 10/07/24 18:50 General Stated Complaint: Orthopedic ANUJ: 4 Review of Systems Musculoskeletal Musculoskeletal: Reports arthralgias Exam Extrem Right lower extremity: normal to inspection and ankle Details: normal to inspection, no edema and normal ROM; no swelling Course Vital Signs Vital signs: Vital Signs Temperature 36.9 C 10/07/24 18:42 Pulse 75 10/07/24 18:42 Respiratory Rate 18 10/07/24 18:42 Blood Pressure 132/81 10/07/24 18:42 Pulse Oximetry 100 10/07/24 18:42 Temperature 36.9 C 10/07/24 18:42 Temperature Source Oral 10/07/24 18:42 Pulse 75 10/07/24 18:42 Respiratory Rate 18 10/07/24 18:42 Blood Pressure 132/81 10/07/24 18:42 Pulse Oximetry 100 10/07/24 18:42 Pain Level 5 10/07/24 18:42 Medical Decision Making 29-year-old female who presents to the ER with chief complaint of right ankle inversion injury which occurred approximately 3 weeks ago after jumping off approximately 3 foot high step. She reports that she inverted her ankle and has had soreness and pain since then. She has been ambulatory on the leg. She did have some bruising. She also reports radiation of pain into her calf. No other injuries reported. X-ray of right foot and ankle ordered. No obvious dislocation or fracture noted on the images. Patient was given a lace up ankle brace and instructed on RICE procedures home care I did encourage her this would probably feel better in the next couple to 3 weeks. If any continued pain to follow-up with orthopedics as needed. She verbalized understanding. This text was generated using [employer] system, please disregard any oddities of phrase or misspellings. Quality:SDOH Health Related Social Needs: No Data to Display PFSH All Active Problems Moderate right ankle sprain (Acute) Liver lesion (Acute) Hepatic hemangioma (Acute) Abdominal pain, lower (Acute) Change in stool habits (Acute) Nausea (Acute) Acute diarrhea (Acute) Epigastric discomfort (Acute) Breast pain (Acute) Normal gynecologic examination (Acute) External hemorrhoid (Acute) H/O bilateral salpingectomy (Acute) 10/21/2020. Bilateral tubal sterilization Medical History Migraine headache Presence of IUD Anxiety Hemorrhoids Sinusitis, acute, maxillary History of postoperative nausea and vomiting [place] teeth removal Surgical History History of wisdom tooth extraction Family History Mother No problems noted. Father Alcohol abuse Prior. Heart disease Heart stents 05/2016 Brother No problems noted. Brother No problems noted. Grandfather No problems noted. Grandmother No problems noted. Social History Smoking/Tobacco Use Status: Former Tobacco Use Quit Date: 02/14/12 Smoking risk assessment performed?: Yes Alcohol Intake: current Alcohol Intake frequency: holidays/special occasions only Details: none in otherwise 1-2 drinks occ. Drug use: Occasionally Substance use type: marijuana Adopted: No Foster care: No Household members: significant other, children and other Details: TIFFANYNadineAlliMartin Alvarez, Wanda Housing: house Number of Children: 2 current occupation: Housekeeping at [employer] Pets and animals: Yes (2 dogs, 3 cats) Sexually active: Yes Current gender identity: female Duration: 15-30 minutes/day Frequency: 3-4 times per week Charity/Jain: none Special charity needs: No Seatbelt use: always Helmet use: Yes Drive intox or ride w/intox substitute bus driver: No Water heater temp set <120 deg: Yes Working smoke detector in home: Yes Fire extinguisher in home: Yes Carbon monox detector in home: Yes Firearms in home: Yes (locked yes) Do you feel safe at home: Yes Do you feel safe in your relationship?: Yes Victim of physical abuse: No Victim of emotional abuse: No Victim of sexual abuse: No History History 2 Para 2 Hx # Term Pregnancies 2 Multiple births 0 Hx # Pregnancies 0 Ectopic pregnancies 0 AB induced 0 Hx Number of Living Children 2 AB spontaneous 0 Past Pregnancies Del. Date GA/Weeks # Preg Succ Route Wgt Sex Labor Lgth Anesth esia Location [facility] 03/17/17 40 vaginal 3146.797 g Male 12hr [facility] 05/11/18 40 No vaginal 2976.7 g Female Delivery Date: 03/17/17 Last Updated by: Tia Jackson RN [place] [facility] [place] 5m.o. w/ viral meningitis PAWSS Have you Been Recently Intoxicated or Drunk Within the Last 30 days?: No Have you Ever Experienced Previous Episodes of Alcohol Withdrawal?: No Have you ever Experienced Withdrawal Seizures?: No Have you ever Experienced Delirium Tremens(DT)s?: No Have you ever undergone Alcohol Rehabilitation Treatment (i.e, inpt ot outpatient treatment programs)?: No Have you ever Experienced Blackouts?: No Have you ever Combined Alcohol with other Downers within the last 90 days?: No Have you ever Combined Alcohol with any other Substance of Abuse during the last 90 days?: No Positive Blood Alcohol level on Presentation? [PCS.BAL]: No Evidence of Increased Autonomic Activity (i.e. HR>120, tremor, sweating, agitation, nausea)?: No Result: 0
--- NOTE | 2024-10-07 20:40 | DI.VRAD_ITS ---
PROCEDURE INFORMATION: Exam: XR Right Ankle Exam date and time: 10/07/2024 7:10 PM Age: 29 years old Clinical indication: Pain and injury or trauma; Fall; Swelling (edema); Ankle and foot; Right TECHNIQUE: Imaging protocol: Radiologic exam of the right ankle. Views: 3 or more views. COMPARISON: CR XR FOOT RT COMPLETE 10/07/2024 7:08 PM FINDINGS: Bones/joints: There is no evidence of acute fracture.There is no evidence of malalignment or dislocation. Soft tissues: Normal. IMPRESSION: There is no evidence of acute fracture.There is no evidence of malalignment or dislocation. Dictated and Authenticated by: Anuj Da Silva MD. Orderin Melissa Das MD
--- NOTE | 2024-10-07 20:41 | DI.VRAD_ITS ---
PROCEDURE INFORMATION: Exam: XR Right Foot Exam date and time: 10/07/2024 7:08 PM Age: 29 years old Clinical indication: Pain and injury or trauma; Fall; Swelling (edema); Ankle and foot; Right TECHNIQUE: Imaging protocol: Radiologic exam of the right foot. Views: 3 or more views. COMPARISON: No relevant prior studies available. FINDINGS: Bones/joints: There is no evidence of acute fracture.There is no evidence of malalignment or dislocation. Soft tissues: Normal. IMPRESSION: There is no evidence of acute fracture.There is no evidence of malalignment or dislocation. Dictated and Authenticated by: Anuj Da Silva MD. Orderin Melissa Das MD
[2024-10-07 20:55] VITALS: PULSE 81; RESP 18; O2SAT 95
--- NOTE | 2024-10-08 06:50 | NUR.NOTE ---
Accessed Pt chart to note the diagnosis on the [facility] paperwork
== END 2024-10-07 20:55 | disposition home or self-care (01) ==
PROVIDERS: Emergency Provider Registered Nurse Emergency; PCP Naturopath
DX: S93.401A Sprain of unspecified ligament of right ankle, initial encounter (principal); X50.1XXA Overexertion from prolonged static or awkward postures, initial encounter; Y93.39 Activity, other involving climbing, rappelling and jumping off; Z87.891 Personal history of nicotine dependence
CPT/HCPCS: 99283; 73610; 73630

== ENCOUNTER 2025-01-10 13:19 | Emergency (ER) | payer MEDICAID, SELFPAY ==
--- NOTE | 2025-01-10 13:15 | RT.EKG_ITS ---
APPROVED REPORT Exam: Resting ECG Reason for Exam: dizziness Patient Location: E HR:65 bpm ECG Measurements Heart Rate 65 AXIS AK 158 P 72 QRSd 99 QRS 95 QT 422 T 51 QTc 441 Conclusion Sinus rhythm...normal P axis, V-rate 60- 99 I have reviewed and interpreted ECG and agree with software generated interpretation.
[2025-01-10 13:21] VITALS: BP 117/72; PULSE 64; RESP 16; TEMP 36.5; O2SAT 99
[2025-01-10 13:52] VITALS: BP 117/72; PULSE 64; RESP 16; TEMP 36.5; O2SAT 99
--- NOTE | 2025-01-10 14:00 | W.ED.GENAD ---
Discharge Plan Disposition Patient Disposition: Home Condition: Good Discharge Details Clinical Impression: Headache Primary Care Provider: Sam Rahman ED Provider: Brandon Man Home Meds and New Rx's Prescriptions: No Action digestive enzymes Capsule 1 cap PO TID Rx Instructions: administer with food; swallow whole; do not crush/chew/dissolve/break/cut magnesium glycinate 100 mg magnesium capsule 1 mg PO DAILY ibuprofen [Advil] 200 mg tablet 600 mg PO Q8H Discharge Instructions Instructions: Headache, Adult ED Additional Instructions: At this time your workup has returned reassuring. Your headache has resolved. Please drink plenty of fluids, stay away from excessive caffeine, avoid nitrites and preserved meats. Follow-up closely with your primary care provider, and please have a discussion with them about potential migraine abortive medications. If you notice any worsening of your symptoms, or any new symptoms such as vomiting, diarrhea, fever, chills, shortness of breath, chest pain, numbness, weakness, or fainting , please return immediately to the emergency department for reevaluation. Please follow up with your primary care provider as soon as possible for reassessment and reevaluation. As always, it was a pleasure participating in your medical care today. Referrals: Sam Rahman [Primary Care Provider, Medicine] [facility] General Date/Time Provider Initiated Documentation: 01/10/25 13:37. HPI Narrative: 29-year-old female with a past medical history of chronic migraines, salpingectomy, who presents today for evaluation of headache. Patient states that about 3 hours ago she developed a frontal headache, she had mild associated nausea, she developed mild tunnel vision and then tingling on her nose bilateral face and hands. She had no trauma. She had no alcohol. She states that the symptoms appear consistent with her normal migraines. She states that it is slightly worse than normal. She did try to take abortive NSAID therapy, which did not improve her symptomatology. She denies any fever or chills. No neck stiffness. The patient denies any headache red flags of worst headache of life, thunderclap headache, neck pain, fever, chills, concerning family history of polycystic kidney disease, Marfan syndrome, Jean Carlos-Danlos syndrome, abdominal aortic aneurysm, aortic dissection, or intracranial aneurysm. No other complaints at this time. No other modifying factors. Related Data Home Medications ?Medication ?Instructions ?Recorded ?Confirmed magnesium glycinate 1 mg PO DAILY 03/20/23 01/10/25 digestive enzymes 1 cap PO TID 03/21/23 01/10/25 ibuprofen 200 mg tablet (Advil) 600 mg PO Q8H 04/29/24 01/10/25 Allergies Allergy/AdvReac Type Severity Reaction Status Date / Time No Known Allergies Allergy Verified 01/10/25 13:30 General Stated Complaint: Headache ANUJ: 3 Exam Narrative Exam Narrative: 1.Const: Well-nourished, Well-developed, appearing stated age 2.Eyes: PERRL, no conjunctival injection, and symmetrical lids. 3.ENT: Atraumatic external nose and ears. Moist MM. Neck: Symmetric, trachea midline, No thyromegaly. Patient demonstrates good movement of cervical neck. There is no nuchal rigidity, no nuchal tenderness. Patient is able to flex the neck without any difficulty or significant pain. Negative Kernig's and Brudzinski sign. 4.CVS: +S1/S2, Peripheral pulses 2+ and equal in all extremities. Brisk capillary refill in all extremities. 5.RESP: Unlabored respiratory effort. Clear to auscultation bilaterally. No wheezes rales or rhonchi 6.GI: Soft, Nontender/Nondistended, No hepatosplenomegaly. No guarding or rebound. 7.MSK: Normocephalic/Atraumatic, Extremities w/o deformity or ttp No cyanosis or clubbing, Normal movement of all extremities 8.Skin: Warm, Dry. No rashes or lesions. 9.Neuro: property management bookkeeper II-XII grossly intact. Sensation grossly intact, no focal neurologic deficits. All 6 cardinal planes of vision are fully intact. No evidence of rotatory or vertical nystagmus. The patient demonstrated a normal [id number], good dexterity. There was no evidence of dysdiadochokinesia. Patient was able to ambulate without difficulty. There was no wide-based gait. Romberg testing was normal. Bpmx-ou-zfyx testing was normal. Sensation was intact bilaterally as well as muscle strength bilaterally for all extremities. Patient was able to verbalize butter cup with no slurring, or miss pronunciation. 10.Psych: (AAO) x3. Appropriate mood and affect Course Vital Signs Vital signs: Vital Signs Temperature 36.5 C 01/10/25 13:21 Pulse 64 01/10/25 13:21 Respiratory Rate 16 01/10/25 13:21 Blood Pressure 117/72 01/10/25 13:21 Pulse Oximetry 99 01/10/25 13:21 Temperature 36.5 C 01/10/25 13:52 Temperature Source Oral 01/10/25 13:52 Pulse 64 01/10/25 13:52 Respiratory Rate 16 01/10/25 13:52 Blood Pressure 117/72 01/10/25 13:52 Blood Pressure Position Sitting 01/10/25 13:52 Pulse Oximetry 99 01/10/25 13:52 Oxygen Delivery Method Room Air 01/10/25 13:52 Oxygen Flow Rate 0 01/10/25 13:52 Pain Level 8 01/10/25 13:52 Lab/Test Results Lab/Test Results: POC- Test(urine) Negative Medical Decision Making 29-year-old female with a past medical history of chronic migraines, salpingectomy, who presents today for evaluation of headache. Patient states that about 3 hours ago she developed a frontal headache, she had mild associated nausea, she developed mild tunnel vision and then tingling on her nose bilateral face and hands. She had no trauma. She had no alcohol. She states that the symptoms appear consistent with her normal migraines. She states that it is slightly worse than normal. She did try to take abortive NSAID therapy, which did not improve her symptomatology. She denies any fever or chills. No neck stiffness. The patient denies any headache red flags of worst headache of life, thunderclap headache, neck pain, fever, chills, concerning family history of polycystic kidney disease, Marfan syndrome, Jean Carlos-Danlos syndrome, abdominal aortic aneurysm, aortic dissection, or intracranial aneurysm. No other complaints at this time. No other modifying factors. Exam demonstrates well-appearing female, no nuchal rigidity, no managements, no neurologic deficits. Symptoms inconsistent with stroke, meningitis, tumor. Physical exam is very reassuring. Concern for migraine at the top differential. Likelihood of intracranial etiology requiring CT imaging is low and inconsistent with current exam findings. No thunderclap component to suggest aneurysm or bleed. No trauma to suggest subdural. Will give migraine cocktail but hold on Reglan/Compazine secondary to a previous significant reaction of anxiety and nervousness when she had it last time 7 years ago. Will rehydrate, give Solu-Medrol, Toradol, Benadryl, monitor closely and reassess. 4 6 PM Laboratory workup is returned normal, she does have mild hematuria in her urine, reflective of her menstrual status, repeat assessment demonstrates near complete resolution of the headache. She feels well and is requesting discharge. No evidence of neurologic deficit. Patient feels well. Patient will be discharged home. Discussed red flags for which to return. I have extensively reviewed the treatment plan and discharge instructions with the patient. I have addressed all patient concerns at this time. The patient was made aware of what symptoms to monitor for that would warrant a return to the emergency department. Discussed the plan with the patient, they demonstrate verbal understanding and agreement with our assessment and plan at this time. The documentation in this chart was dictated using [employer] dictation software. Please excuse any dictation errors. PFSH All Active Problems Headache (Acute) Liver lesion (Acute) Hepatic hemangioma (Acute) Abdominal pain, lower (Acute) Change in stool habits (Acute) Nausea (Acute) Acute diarrhea (Acute) Epigastric discomfort (Acute) Breast pain (Acute) Normal gynecologic examination (Acute) External hemorrhoid (Acute) H/O bilateral salpingectomy (Acute) 10/21/2020. Bilateral tubal sterilization Medical History Migraine headache Presence of IUD Anxiety Hemorrhoids Sinusitis, acute, maxillary History of postoperative nausea and vomiting [place] teeth removal Surgical History History of wisdom tooth extraction Family History Mother No problems noted. Father Alcohol abuse Prior. Heart disease Heart stents 05/2016 Brother No problems noted. Brother No problems noted. Grandfather No problems noted. Grandmother No problems noted. Social History Smoking/Tobacco Use Status: Former Tobacco Use Quit Date: 02/14/12 Smoking risk assessment performed?: Yes Alcohol Intake: current Alcohol Intake frequency: holidays/special occasions only Details: none in otherwise 1-2 drinks occ. Drug use: Occasionally Substance use type: marijuana Adopted: No Foster care: No Household members: significant other, children and other Details: Cameron MeloNadineAntonioaWnda Housing: house Number of Children: 2 current occupation: Housekeeping at [employer] Pets and animals: Yes (2 dogs, 3 cats) Sexually active: Yes Current gender identity: female Duration: 15-30 minutes/day Frequency: 3-4 times per week Charity/Gnosticist: none Special charity needs: No Seatbelt use: always Helmet use: Yes Drive intox or ride w/intox heavy truck driver: No Water heater temp set <120 deg: Yes Working smoke detector in home: Yes Fire extinguisher in home: Yes Carbon monox detector in home: Yes Firearms in home: Yes (locked yes) Do you feel safe at home: Yes Do you feel safe in your relationship?: Yes Victim of physical abuse: No Victim of emotional abuse: No Victim of sexual abuse: No History History 2 Para 2 Hx # Term Pregnancies 2 Multiple births 0 Hx # Pregnancies 0 Ectopic pregnancies 0 AB induced 0 Hx Number of Living Children 2 AB spontaneous 0 Past Pregnancies Del. Date GA/Weeks # Preg Succ Route Wgt Sex Labor Lgth Anesthesia Location [facility] 03/17/17 40 vaginal 3146.797 g Male 12hr [facility] CN 05/11/18 40 No vaginal 2976.7 g Female Delivery Date: 03/17/17 Last Updated by: Tia Jackson RN Baby hospitalized at [facility] at 5m.o. w/ viral meningitis
[2025-01-10] MEDS: ACETAMINOPHEN 1,000 MG/100 ML BAG 400 MG IVPB (14:23)
[2025-01-10] MEDS: diphenhydrAMINE 50 MG/ML VIAL 25 MG IVP (14:24)
[2025-01-10] MEDS: Ketorolac 15 MG/ML VIAL IVP (14:25)
[2025-01-10] MEDS: methylPREDNISolone SUCC 125 MG VIAL IVP (14:25)
[2025-01-10] MEDS: Lactated Ringers 1,000 ML 1000 ML IV (14:26)
[2025-01-10 15:09] LABS: Abs Immature Grans 0.03 10^3/uL (0.0-0.06); Absolute Basophil Count 0.05 10^3/uL (0.0-0.2); Absolute Eosinophil Count 0.29 10^3/uL (0.0-0.7); Absolute Lymphocyte Count 2.07 10^3/uL (1.2-3.4); Absolute Monocyte Count 0.96 10^3/uL (0.1-0.8); Absolute Neutrophil Count 5.34 10^3/uL (1.2-6.7); Basophils % 0.6 %; Eosinophils % 3.3 %; HCT 43.1 % (36.0-46.0); HGB 14.5 g/dL (11.2-15.7); Immature Grans % 0.3 %; Lymphocytes % 23.7 %; MCH 29.3 pg (27.0-33.0); MCHC 33.6 % (32.0-36.0); MCV 87 fL (80-95); MPV 12.9 fL (8.0-11.0); Neutrophils % 61.1 %; Platelet Count 222 10^3/uL (130-400); RBC 4.95 10^6/uL (3.93-5.22); RDW 12.6 % (11.7-14.6); RDW-SD 39.9 fL; WBC 8.74 10^3/uL (4.4-10.8)
[2025-01-10 15:12] LABS: Bilirubin Negative (Negative); Blood Large (Negative); Clarity Sl Cloudy (Clear); Glucose Negative (Negative); Ketones 15 mg/dL (Negative); Leukocyte Esterase Negative (Negative); Nitrite Negative (Negative); Urobilinogen 0.2 mg/dL (Up to 0.2); pH 6.5 (5-8)
[2025-01-10 15:15] LABS: ALT 18 U/L (14-59); AST 15 U/L (15-37); Albumin 4.1 g/dL (3.4-5.0); Alkaline Phosphatase 64 U/L (46-116); Anion Gap 14.3 mmol/L (3-11); BUN 15 mg/dL (7-18); Bilirubin, Total 0.5 mg/dL (0.2-1.0); CO2 22.7 mmol/L (21.0-32.0); CREATININE 0.7 mg/dL (0.55-1.02); Calcium 8.8 mg/dL (8.5-10.1); Chloride 102 mmol/L (98-107); Estimated GFR 119.24 (mL/min/1.73m2); Glucose 90 mg/dL (74-106); Potassium 3.6 mmol/L (3.5-5.1); Sodium 139 mmol/L (136-145); Total Protein 7.4 g/dL (6.4-8.2)
[2025-01-10 15:44] LABS: Bacteria Rare HPF (Negative); C & S Indicated? No; Casts Negative LPF (Negative); Crystals Negative HPF (Negative); Epithelial Cells Rare HPF (Negative); Mucus Trace (Negative); RBC >50 HPF (0-2); WBC 0-2 HPF (0-5)
[2025-01-10 16:01] VITALS: BP 101/77; PULSE 65; RESP 16; O2SAT 97
== END 2025-01-10 16:21 | disposition home or self-care (01) ==
PROVIDERS: Emergency Provider Student in an Organized Health Care Education/Training Program; PCP Naturopath
DX: R51.9 Headache, unspecified (principal); Z87.891 Personal history of nicotine dependence
CPT/HCPCS: 36415; 80053; 81025; 93005; 96361; 96374; 96375; 99284; 81003; 81015; 85025; 93010; J0131; J1200; J1885; J2919